=== PATIENT | female | born 1995 | race Caucasian/White ===

== ENCOUNTER 2020-04-10 05:54 | Inpatient (IN) | payer MEDICARE ==
[~2020-04-10] VITALS: Ht 165.1 cm; Wt 108.9 kg
[2020-04-10] MEDS ORDERED: SODIUM CHLORIDE 0.9% 1000ML 1,000 ML IV STA (05:56)
[2020-04-10] MEDS ORDERED: ONDANSETRON HCL INJ 2MG/ML 2ML 2 MG/ML VIAL IV STA (05:56)
[2020-04-10] MEDS ORDERED: KETOROLAC TROMETHAMINE 30 MG/ML VIAL IV STA (05:56)
[2020-04-10 06:19] LABS: BASOPHILS # (AUTO) 0.1 (0.0-0.1); BASOPHILS % 0.3 % (0.0-1.0); EOSINOPHILS # (AUTO) 0.2 (0.0-0.4); EOSINOPHILS % 1.1 % (0.0-6.0); HEMATOCRIT 40.8 % (34.2-44.1); HEMOGLOBIN 13.4 g/dL (12.0-16.0); LYMPHOCYTES # (AUTO) 1.7 (1.0-3.2); LYMPHOCYTES % 11.4 % (18.0-39.1); MEAN CORPUSCULAR HEMOGLOBIN 26.9 pg (28-32); MEAN CORPUSCULAR HGB CONC 32.8 g/dL (31-35); MEAN CORPUSCULAR VOLUME 81.9 fL (81-99); MONOCYTES # (AUTO) 1.2 (0.2-0.8); MONOCYTES % 7.9 % (4.4-11.3); PLATELET COUNT 292 x10e3/uL (140-360); RED BLOOD COUNT 4.98 x10e6/uL (3.6-5.1); RED CELL DISTRIBUTION WIDTH 16.4 % (11.7-14.4)
[2020-04-10 06:27] LABS: CLARITY,URINE SL CLOUDY (CLEAR); COLOR,URINE YELLOW (YELLOW); KETONES,URINE 2+ (NEGATIVE); LEUKOCYTE ESTERASE ,URINE MODERATE (NEGATIVE); NITRITE,URINE NEGATIVE (NEGATIVE); PROTEIN,URINE DIPSTICK 2+ (NEGATIVE); URINE UROBILINOGEN 0.2 mg/dL (0.2 - 1)
[2020-04-10 06:28] LABS: PREGNANCY TEST, URINE NEGATIVE (NEGATIVE)
[2020-04-10 06:46] LABS: RBC,URINE >50 /HPF (0-5); WBC,URINE (MAN) >50 /HPF (0-5)
[2020-04-10 06:47] LABS: BACTERIA,URINE MODERATE /HPF; EPITHELIAL CELLS,URINE MODERATE /LPF
[2020-04-10 07:02] LABS: ALANINE AMINOTRANSFERASE 21 IU/L (0-55); ALBUMIN 4.3 g/dL (3.5-5.0); ALBUMIN/GLOBULIN RATIO 1.3 (0.8-2.0); ALKALINE PHOSPHATASE 57 IU/L (40-150); ANION GAP 17.6 mmol/L (8-16); BLOOD UREA NITROGEN 12 mg/dL (7-26); BUN/CREATININE RATIO 15 (6-25); CALCIUM 8.7 mg/dL (8.4-10.2); CARBON DIOXIDE 20 mmol/L (22-29); CHLORIDE 105 mmol/L (98-107); CREATININE, SERUM 0.79 mg/dL (0.57-1.11); EST GLOMERULAR FILTRATION RATE > 60 ML/MIN (60-); GLUCOSE 109 mg/dL (74-118); POTASSIUM 3.6 mmol/L (3.5-5.1); SODIUM 139 mmol/L (136-145)
[2020-04-10] MEDS ORDERED: IOPAMIDOL 370 MG/ML 200 ML INFUS..BTL INJ ONE (07:13)
[2020-04-10] MEDS ORDERED: SODIUM CHLORIDE 0.9% 50ML 50 ML ONE (07:13)
[2020-04-10] MEDS ORDERED: CEFTRIAXONE SOD 1 GM/NS 50 ML 50 ML IV ONE (07:30)
[2020-04-10 09:26] VITALS: BP 133/99
[2020-04-10 09:41] VITALS: BP 133/99
[2020-04-10 15:11] VITALS: BP 127/78
[2020-04-10] MEDS: SODIUM CHLORIDE 0.9% 1000ML 1,000 ML IV SCH (19:07)
[2020-04-10 20:00] VITALS: BP 111/60
[2020-04-10 21:59] VITALS: BP 111/60
[2020-04-11] VITALS: BP 117/67
[2020-04-11 04:00] VITALS: BP 126/74
[2020-04-11] MEDS: SODIUM CHLORIDE 0.9% 1000ML 1,000 ML IV SCH (06:56)
[2020-04-11 08:17] VITALS: BP 130/90
[2020-04-11 08:25] VITALS: BP 130/90
[2020-04-11] MEDS ORDERED: PANTOPRAZOLE 40 MG 10ML VIAL IV SCH (09:00)
[2020-04-11] MEDS ORDERED: SIMETHICONE 40 MG/0.6 ML BTL ONE (11:09)
[2020-04-11 11:58] VITALS: BP 143/86
[2020-04-11] MEDS ORDERED: LIDOCAINE HCL 2% LOCAL INJ 5 ML SDV VIAL INJ ONE (13:32)
[2020-04-11] MEDS ORDERED: PROPOFOL IV EMULSION 10 MG/ML 20 ML VIAL ONE (13:32)
[2020-04-11 16:11] VITALS: BP 146/98
[2020-04-11] MEDS ORDERED: PANTOPRAZOLE SO40 MG PO (16:12)
== END 2020-04-11 16:43 | disposition home or self-care (01) | DRG 379 ==
LOC: ER 06:24 → ERHOLD 08:26 → MED/SURG2 09:23
PROVIDERS: ADMIT Surgery; ATTEND Surgery
PROC: 0DB78ZX Excision of Stomach, Pylorus, Via Natural or Artificial Opening Endoscopic, Diagnostic (ICD-10-PCS; principal; 2020-04-11 11:41)
DX: K29.71 Gastritis, unspecified, with bleeding (principal); K31.9 Disease of stomach and duodenum, unspecified; Z20.822 Contact with and (suspected) exposure to COVID-19
CPT/HCPCS: 36415; 43239; 74177; 76705; 80053; 81001; 81025; 83690; 85025; 88305; 88312; 96361; 99284; J0696; J1885; J2405; J7030; Q9967; U0002

== ENCOUNTER 2021-10-30 05:17 | Emergency (ER) | payer SELFPAY ==
[~2021-10-30] VITALS: Ht 165.1 cm; Wt 108.9 kg
[~2021-10-30 05:17] MED LIST: PANTOPRAZOLE SO40 MG PO
[2021-10-30] MEDS ORDERED: FAMOTIDINE 20 MG TAB PO ONE (05:30)
[2021-10-30] MEDS ORDERED: PREDNISONE 20 MG TAB PO ONE (05:30)
== END 2021-10-30 06:02 | disposition home or self-care (01) ==
LOC: ER 05:20
DX: L50.9 Urticaria, unspecified (principal); F17.210 Nicotine dependence, cigarettes, uncomplicated
CPT/HCPCS: 99283; J7512